=== PATIENT | male | born 1960 | race Caucasian/White ===

== ENCOUNTER 2024-10-04 12:52 | Outpatient (CLI) | payer MEDICARE, SELFPAY ==
--- OUTSIDE RECORDS SUMMARY | 2024-10-04 13:07 | XMS_ITS | Clinical Summary ---
Author Organization [facility] [address] Address [address] [place] [address] Care Team Providers Care Salesperson [employer] Name Role Phone Laura Torres MD Primary Care Provider [phone] Allergies Active Allergy Reactions Criticality Noted Date Comments Aspirin Nausea and Vomiting Low 03/21/2018 Bloody emesis Celecoxib Nausea and Vomiting Low 03/21/2018 Bloody emesis Iodinated Contrast Media Nausea and Vomiting Low Bloody emesis Ioversol Headache Low 07/04/2019 Bloody emesis Medications multivitamin (DAILY-CHINA) tablet Take 1 Tablet by mouth daily. Active tamsulosin (FLOMAX) 0.4 mg capsule Take 0.4 mg by mouth daily at bedtime. 03/30/20 20 Active CPAP / BIPAP suppliesIndication s:VARGHESE on CPAP CPAP Mask fit to comfort, Refit if needed, All associated CPAP Supplies as needed Length of need: 99 months DME Resp IV Care Small Wide N30 nasal mask 1 Each 12/09/19 21 Active acetaminophen-code ine (TYLENOL #3) 300-30 mg tablet TAKE 1 TABLET BY MOUTH EVERY 8 HOURS NEEDED FOR SEVERE PAIN (SCALE 8-10 IN SEVERITY) 12/14/19 22 Active overnight pulse oximetryIndication s:VARGHESE on CPAP Overnight pulse oximetry: One time overnight pulse oximetry test on room air and CPAP x 1 night IV resp care 1 Each 04/01/20 22 Active cpap medical deviceIndications: VARGHESE on CPAP New CPAP Setup Airsense 11 10cm with heated humidity, climateline tubing. Mask fit to comfort All associated CPAP supplies as needed, Please add to Airview. Compliance Download with [facility] in 2 weeks. ARELI 99 DME IV Resp Care 1 Each 04/01/20 Active loperamide (IMODIUM) 2 mg capsule Take 1 Capsule (2 mg) by mouth 4 times daily as needed for Diarrhea/Loose Stools. 120 Capsule 04/08/20 22 Active meclizine (ANTIVERT) 25 mg tablet TAKE 1 TABLET BY MOUTH 3 TIMES A DAY NEEDED FOR DIZZINESS 270 Tablet 3 09/07/19 24 Active rosuvastatin (CRESTOR) 20 mg tabletIndications: Mixed hyperlipidemia Take 1 Tablet (20 mg) by mouth daily. 100 Tablet 3 10/26/19 24 Active ezetimibe (Zetia) 10 mg tabletIndications: Mixed hyperlipidemia Take 1 Tablet (10 mg) by mouth daily. 100 Tablet 3 10/26/19 24 Active lisinopriL (PRINIVIL) 10 mg tabletIndications: Type 2 diabetes mellitus with diabetic peripheral angiopathy without gangrene, without long-term current use of insulin ([facility]),Diabetic polyneuropathy associated with type 2 diabetes mellitus ([facility]),HTN (hypertension), benign Take 1 Tablet (10 mg) by mouth daily. 100 Tablet 3 10/26/19 24 Active empagliflozin (Jardiance) 25 mg tabletIndications: Type 2 diabetes mellitus with complication, without long-term current use of insulin ([facility]) take 1 tablet by mouth every day in the morning 100 Tablet 3 02/01/20 24 Active pantoprazole (PROTONIX) 40 mg Tablet, Delayed Release (E.C.) take 2 tablets by mouth every day 200 Tablet 3 03/06/20 24 Active buPROPion HCL (WELLBUTRIN SR) 150 mg Sustained Release 12 hour tablet take 1 tablet by mouth twice a day 200 Tablet 3 03/06/20 24 Active gabapentin (NEURONTIN) 600 mg tabletIndications: Diabetic polyneuropathy associated with type 2 diabetes mellitus ([facility]/H[facility]) take 1 tablet by mouth three times a day 300 Tablet 3 03/11/20 24 Active semaglutide (Ozempic) 2 mg/dose (8 mg/3 mL) Pen InjectorIndication s:Type 2 diabetes mellitus with diabetic peripheral angiopathy without gangrene, without long-term current use of insulin ([facility]) Inject 2 mg by subcutaneous injection every 7 days. 9 mL 3 10/16/20 24 Active cyclobenzaprine (FLEXERIL) 5 mg TabletIndications: Acute pain of left knee,Muscle spasm of left lower extremity Take 1 Tablet (5 mg) by mouth 3 times daily as needed for Spasm. 20 Tablet 04/03/20 24 Active meloxicam (MOBIC) 15 mg tabletIndications: Acute pain of left knee TAKE 1 TABLET BY MOUTH EVERY DAY 100 Tablet 3 04/26/20 24 Active fluticasone propionate (FLONASE) 50 mcg/spray [place], Suspension nasal inhaler INSTILL 2 SPRAYS INTO THE NOSTRILS ONCE DAILY 48 mL 3 07/17/19 25 Active glipiZIDE (GLUCOTROL XL) 10 mg Extended Release 24 hour tabletIndications: Type 2 diabetes mellitus with complication, without long-term current use of insulin ([facility]) Take 1 Tablet (10 mg) by mouth 2 times daily. 200 Tablet 3 09/03/19 25 Active traMADol (ULTRAM) 50 mg tabletIndications: Whiplash injury to neck, initial encounter Take 1 Tablet (50 mg) by mouth every 8 hours as needed for Pain. 15 Tablet 09/28/19 25 Active Active Problems Patient Care Coordination No te Formatting of this note migh t be different from the original. DME: IV Resp Care for CPAP 6 yrs old Problem Noted Date Diagnosed Date Primary osteoarthritis of left knee 04/12/2024 DDD (degenerative disc disease), lumbar 02/12/20 Vertigo 02/12/2024 Frequent falls 02/12/2024 Frail elderly 02/12/2024 Severe obesity (BMI 35.0-39.9) with comorbidity 02/12/2024 Mixed hyperlipidemia 09/27/2022 Vitamin D insufficiency 08/26/2021 Type 2 diabetes mellitus wit h diabetic peripheral angiopathy without gangrene, without long-term current use of insulin 08/26/2021 Erectile dysfunction due to arterial insufficien cy 01/11/2021 Primary osteoarthritis of both knees 03/24/2020 Assessment & Plan (06/04/2020 3:11 PM WARE FINISHER): Suboptimal control. Assessment & Plan (05/28/2020 4:21 PM WARE FINISHER): Suboptimal control. Assessment & Plan (05/19/2020 1:31 PM WARE FINISHER): Suboptimal control. Assessment & Plan (04/07/2020 4:50 PM CDT): Suboptimal control. Recurrent major depressive disorder, in partial remission 04/25/2018 Lumbago of lumbar region with sciatica 8 HTN (hypertension), benign 03/21/2018 Gastroesophageal reflux disease without esophagi tis 03/21/2018 Diabetic polyneuropathy asso ciated with type 2 diabetes mellitus 03/21/2018 VARGHESE on CPAP 03/21/2018 Spinal stenosis of lumbar region 10/26/2016 Resolved Problems Problem Noted Date Diagnosed Date Resolved Date Orthostatic hypotension 10/26/202109/17 JOAQUIM (acute kidney injury) 10/25/2021 Syncope 10/25/2021 09/27/2022 Chest pain 10/25/2021 09/27/2022 Adjustment disorder with depressed mood 08/26/2021 08/26/2021 Hydrocele 01/11/2021 04/07/2022 Lateral femoral cutaneous entrapment syndrome 08/06/1909/27/2022 Right inguinal hernia 12/18/20182023 Morbid obesity with body mas s index of 40.0-49.9 04/17/2018 08/26/2021 Positional lightheadedness 0 09/27/2022 Encounters Date Type Department Care Team Description 09/27/2024 Orders Only [facility] [address] [place] [address] Provider, Abstract Whiplash injury to neck, initial encounter (Primary Dx) 09/26/2024 12:57 PM CDT - 09/26/2024 11:59 PM CDT Hospital Encounter [facility] [address] [facility] [place] [address] Laura Torres MD Discharge Disposition: Home or Self Care 09/26/2024 Results Follow-Up [facility] [address] [place] [address] Laura Torres MD MRI CERVICAL WO CONTRAST 09/02/2024 Orders Only [facility] [address] [place] [address] Laura Torres MD Type 2 diabetes mellitus with complication, without long-term current use of insulin (CMS/HCC) 08/27/2024 External Device Data [facility] ABSTRACTION Provider, Abstract 08/27/2024 External Device Data [facility] ABSTRACTION Provider, Abstract 08/16/2024 Prep for Surgery [facility] [address] [phone] Dariana Sy PCA Meralgia paresthetica, unspecified laterality (Primary Dx) 08/14/2024 12:20 PM WARE FINISHER Office Visit [facility] [address] [phone] Padmini Seay PA Meralgia paresthetica, unspecified laterality (Primary Dx) 08/13/2024 Abstract [facility] [address] [place] [address] Laura Torres MD 08/12/2024 Abstract [facility] [address] [place] [address] Laura Torres MD 08/07/2024 3:00 PM WARE FINISHER Office Visit [facility] [address] [place] [address] Laura Torres MD Concussion without loss of consciousness, initial encounter (Primary Dx); Type 2 diabetes mellitus with diabetic peripheral angiopathy without gangrene, without long-term current use of insulin (CMS/HCC); Severe obesity (BMI 35.0-39.9) with comorbidity (CMS/HCC); HTN (hypertension), benign; Diabetic polyneuropathy associated with type 2 diabetes mellitus (CMS/HCC); Mixed hyperlipidemia; Vitamin D insufficiency; Prostate cancer screening; Vertigo; Whiplash injury to neck, initial encounter 08/05/2024 Orders Only [facility] [address] [place] [address] Laura Torres MD 07/31/2024 Telephone [facility] [place] [address] [place] [address] Laura Torres MD Clinical Consult Before Scheduling 07/17/2024 Refill [facility] [place] [address] [place] [phone] Laura Torres MD 07/15/2024 12:17 PM WARE FINISHER - 07/15/2024 11:59 PM WARE FINISHER Hospital Encounter [facility] [address] [place] [address] Claudia Ramirez, JUDO INSTRUCTOR Janak Grant MD Discharge Disposition: Home or Self Care 07/15/2024 11:08 AM WARE FINISHER - 07/15/2024 11:59 PM WARE FINISHER Hospital Encounter [facility] [address] [place] [address] Janak Grant MD Discharge Disposition: Home or Self Care 07/11/2024 External Device Data [place] ABSTRACTION Provider, Abstract 07/10/2024 External Device Data [place] ABSTRACTION Provider, Abstract 07/09/2024 External Device Data [place] ABSTRACTION Provider, Abstract from Last 3 Months Immunizations Immunization Administration Dates Next Due (ADACEL/BOOSTRIX)(10 YR UP) TDAP VACCINE, 0.5ML, IM 12/23/2020 (PFIZER DRU)(12 YR UP PRIMA RY SERIES) COVID-19 VACCINE - EMERGENCY USE AUTHORIZATION, MRNA, DRU(PF) 30 MCG/0.3 ML IM SUSP 08/13/2021 (PFIZER)(12 YR UP) COVID-19 VACCINE - EMERGENCY USE AUTHORIZATION, MRNA, [id number](PF) 30 MCG/0.3 ML IM SUSP 01/27/2021,01/06/2021 INFLUENZA VACCINE QUADRIVALENT 6 MOS UP IM 05/27 Family History Medical History Relation Name Comments Cancer Brother 1 Francisco Hypertension Brother 1 Francisco Diabetes Brother 3 Georges Antonieta Hypertension Brother 3 Georges Antonieta Cancer Father Ryan Diabetes Paternal Grandmother Eva Fung Dece ed Relation Name Status Comments Brother 1 Francisco Brother 2 Alive Brother 3 Georges Antonieta Daughter 1 Alive Daughter 2 Alive Father Ryan Mother Paternal Grandmother Eva Fung Social History Tobacco Use Types Packs/Day Years Used Date Smoking Tobacco: Never Passive Smoke Exposure: Never Smokeless Tobacco: Never Tobacco Cessation:Counseling Given: No Alcohol Use Standard Drinks/Week Comments Never 0 (1 standard drink = 0.6 oz pur e alcohol) wine cooler, beer; 1-4 times Financial Resource Strain Answer Date R ecorded How hard is it for you to pa y for the very basics like food, housing, medical care, and heating? Not hard at all 09/27/2022 Food Insecurity Answer Date Recorded In the past 12 months, have you worried that your food would run out before you had money to buy more? Never true 09/27/2022 In the past 12 months, did y ou run out of food and didn't have money to buy more? Never true 09/27/2022 Transportation Needs Answer Date Record ed In the past 12 months, has l ack of transportation kept you from medical appointments or from getting medications? No 09/27/2022 Lack of Transportation (Non-Medical) Not on file 09/27/2022 Sex and Gender Information Value Date Recorded Sex Assigned at Not on file Legal Sex Male 11:11 PM CDT Gender Identity Not on file Sexual Orientation Not on file Occupation Industry Job Start Date Job End Date Disability Not on file Not on file Not on file Last Filed Vital Signs Vital Sign Reading Time Taken Comments Blood Pressure 137/87 08/07/2024 1:52 PM WARE FINISHER Pulse 80 08/07/2024 1:52 PM WARE FINISHER Temperature 36.6 C (97.8 F) 08/07/2024 1:52 PM WARE FINISHER Respiratory Rate 22 07/15/2024 12:47 PM WARE FINISHER Oxygen Saturation 96% 08/07/2024 1:52 PM WARE FINISHER Inhaled Oxygen Concentration - - Weight 124.3 kg (274 lb) 09/24/2024 11:19 AM CDT Height 180.3 cm (5' 11 ) 08/07/2024 1:52 PM WARE FINISHER Body Mass Index 38.22 08/07/2024 1:52 PM WARE FINISHER Plan of Treatment Upcoming Encounters Date Type Department Care Team (Late st Contact Info) Description 10/15/2024 1:30 PM CDT Appointment [facility] [address] [place] [address] [place] [address] [place] [address] 10/24/2024 9:15 AM CDT Office Visit [facility] [address] [facility] [address] [place] [address] Jessie Guillory, LOGISTICS SOLUTION MANAGER-MINE SAFETY DIRECTOR [address] [place] [address] Health Maintenance Due Date Last Done Comments FIT/FOBT Q 1 YEAR (AUTO ORDER) 11/11/1979 FIT-DNA Q 3 years 2006 FIT/FOBT Q 1 year 2006 Flex Sig/CT Colonography Q 5 years 2006 ZOSTER VACCINE (1 of 2) 11/11/2011 RSV VACCINE (60+ or ) (1 - Risk 60-74 years 1-dose series) 2021 FIT/ DNA Q 3 YEARS (AUTO ORDER) 05/01/2022 9 COVID-19 Vaccine ( - 2023-2 5 season) 2024 08/13/2021, 01/27/2021, 01/06/2021 FLEX SIG/CT COLONOGRAPHY Q 5 YEARS (AUTO ORDER) 05/01/2024 05/01/2019, 05/01/2019 KHE eGFR (Auto Order) 06/19/2024 07/20/2023 , 09/30/2022, 10/26/2021, Additional history exists KHE uACR (Auto Order) 06/19/2024 07/20/2023 , 09/30/2022, 08/26/2021, Additional history exists Preventative Visit- Commercial 06/19/2024 0 07/19/2023, 11/01/2021, 04/17/2018 DIABETES MICROALBUMIN ANNUAL SCREEN 07/20/2024 07/20/2023, 09/30/2022, 08/26/2021, Additional history exists LDL CHOLESTEROL ANNUAL 07/20/2024 , 09/30/2022, 10/26/2021, Additional history exists DIABETES ANNUAL FOOT EXAM 10/25/20242023, 09/27/2022, 08/26/2021, Additional history exists DIABETES HBA1C Q 6 MONTHS 11/20/20242023, 02/12/2024, 10/26/2023, Additional history exists DIABETES: A1C (Auto Order) 05/22/202505/22, 02/12/2024, 10/26/2023, Additional history exists DIABETES ANNUAL RETINAL EXAM 09/27/202504/2025, 06/15/2022, 01/21/2019 COLORECTAL CANCER SCREENING (AUTO ORDER) 08/22/2029 08/23/2019, 08/23/2019, 08/23/2019 COLORECTAL SCREENING 08/22/2029 08/23/2019, 08/23/2019, 08/23/2019 Colorectal Cancer Screening (AUTO ORDER) 08/22/2029 Colorectal Cancer Screening 08/22/2029 DTAP/TDAP/TD VACCINES (2 - T d or Tdap) 12/23/2030 12/23/2020 INFLUENZA VACCINE Completed 05/22/2024, , 04/14/2023, Additional history exists Medical Devices Implanted Type Area Curriculum Assistant Principal Device Identifier Shelf Expiration Date Model / Serial / Lot Mesh Lap Film Progrip Slf Lp [id number] - Sn/A Implanted:Qty: 1 on 02/08/2019 by Cordell Owens DO at [facility] Mesh Right: Abdomen [employer] - COVIDIEN 09/16/2021 [id number] / N/A / [id number] Description:REQ [id number] Procedures Procedure Name Priority Date/Time Associated Diagnosis Comments HM DIABETES EYE EXAM Routine 09/27/2024 2:59 PM CDT MRI CERVICAL WO CONTRAST Routine 09/26/2024 3:40 PM CDT Whiplash injury to neck, initial encounter US GUIDE NEEDLE PLACEMENT Routine 07/15/2024 12:45 PM WARE FINISHER POC HEMOGLOBIN A1C Routine 05/22/2024 11 :00 AM WARE FINISHER Type 2 diabetes mellitus with diabetic peripheral angiopathy without gangrene, without long-term current use of insulin ([facility]) MICROALBUMIN/CREATINI NE RATIO, RANDOM UR Routine 07/20/2023 8:29 AM WARE FINISHER Type 2 diabetes mellitus with complication, without long-term current use of insulin ([facility]) LIPID PANEL Routine 07/20/2023 8:28 AM WARE FINISHER Mixed hyperlipidemia COMPREHENSIVE METABOLIC PANEL Routine 07/20/2023 8:26 AM WARE FINISHER Type 2 diabetes mellitus with complication, without long-term current use of insulin ([facility]) COLONOSCOPY REPORT 08/23/2019 3: 34 PM WARE FINISHER ENDOSCOPY, COLON, SCREENING Routine 08/23/2019 from Last 3 Months or Most Recently Relevant to Health Maintenance Results * DIABETES EYE EXAM (09/27/2024 2:59 PM CDT) us Abstract Provider HEALTH MAINTENANCE Edited Resu lt - Final [facility]# [id number] [facility] [place] [address] * MRI CERVICAL WO CONTRAST (09/26/2024 3:40 PM CDT) Anatomical Region Laterality Modality Spine Magnetic Resonan ce 09/26/2024 3:40 PM CDT Impressions 09/26/2024 4:18 PM CDT IMPRESSION: 1. Cervical degenerative disc and joint disease as described above, most pronounced at C5-6 and C6-7. DICTATION LOCATION: Location [facility] Narrative 09/26/2024 4:18 PM CDT EXAMINATION: MRI CERVICAL WO CONTRAST DATE: 09/26/2024 3:40 PM HISTORY: Myelopathy, acute, cervical spine; Whiplash injury to neck, initial encounter TECHNIQUE: MRI of the cervical spine was performed without contrast according to standard protocol. COMPARISON: No prior study is available for comparison at the time of this dictation. FINDINGS: The alignment is normal. Vertebral bodies are normal in height without evidence of compression fracture. There is left C2-3 facet marrow edema. The craniocervical junction and visualized portions of the posterior fossa appear normal. The spinal cord appears normal. The intervertebral discs are normal in height. There are mastoid effusions. Normal flow voids are identified in the vertebral arteries. C2-3: There is mild disc bulge. There is mild spinal canal stenosis. There is severe left facet osteoarthritis. There is no uncovertebral joint osteoarthritis. There is no neural foraminal stenosis. C3-4: There is diffuse disc bulge. There is mild spinal canal stenosis. There is mild right facet osteoarthritis. There is mild to moderate uncovertebral joint osteoarthritis. There is mild to moderate neural foraminal stenosis. C4-5: There is mild disc bulge. There is mild spinal canal stenosis. There is severe left facet osteoarthritis. There is mild right uncovertebral joint osteoarthritis. There is mild right neural foraminal stenosis. C5-6: There is diffuse disc bulge. There is ligamentum flavum infolding. There is moderate spinal canal stenosis. There is mild left facet osteoarthritis. There is moderate right and mild left uncovertebral joint osteoarthritis. There is moderate right and mild left neural foraminal stenosis. C6-7: There is diffuse disc bulge. There is ligamentum flavum infolding. There is moderate spinal canal stenosis. There is mild facet osteoarthritis. There is mild right and moderate left uncovertebral joint osteoarthritis. There is mild right and moderate left neural foraminal stenosis. C7-T1: There is mild disc bulge. There is no spinal canal stenosis. There is mild facet osteoarthritis. There is moderate left uncovertebral joint osteoarthritis. There is moderate left neural foraminal stenosis. Procedure Note Christopher Willett MD - 09/26/2024 EXAMINATION: MRI CERVICAL WO CONTRAST DATE: 09/26/2024 3:40 PM HISTORY: Myelopathy, acute, cervical spine; Whiplash injury to neck, initial encounter TECHNIQUE: MRI of the cervical spine was performed without contrast according to standard protocol. COMPARISON: No prior study is available for comparison at the time of this dictation. FINDINGS: The alignment is normal. Vertebral bodies are normal in height without evidence of compression fracture. There is left C2-3 facet marrow edema. The craniocervical junction and visualized portions of the posterior fossa appear normal. The spinal cord appears normal. The intervertebral discs are normal in height. There are mastoid effusions. Normal flow voids are identified in the vertebral arteries. C2-3: There is mild disc bulge. There is mild spinal canal stenosis. There is severe left facet osteoarthritis. There is no uncovertebral joint osteoarthritis. There is no neural foraminal stenosis. C3-4: There is diffuse disc bulge. There is mild spinal canal stenosis. There is mild right facet osteoarthritis. There is mild to moderate uncovertebral joint osteoarthritis. There is mild to moderate neural foraminal stenosis. C4-5: There is mild disc bulge. There is mild spinal canal stenosis. There is severe left facet osteoarthritis. There is mild right uncovertebral joint osteoarthritis. There is mild right neural foraminal stenosis. C5-6: There is diffuse disc bulge. There is ligamentum flavum infolding. There is moderate spinal canal stenosis. There is mild left facet osteoarthritis. There is moderate right and mild left uncovertebral joint osteoarthritis. There is moderate right and mild left neural foraminal stenosis. C6-7: There is diffuse disc bulge. There is ligamentum flavum infolding. There is moderate spinal canal stenosis. There is mild facet osteoarthritis. There is mild right and moderate left uncovertebral joint osteoarthritis. There is mild right and moderate left neural foraminal stenosis. C7-T1: There is mild disc bulge. There is no spinal canal stenosis. There is mild facet osteoarthritis. There is moderate left uncovertebral joint osteoarthritis. There is moderate left neural foraminal stenosis. IMPRESSION: 1. Cervical degenerative disc and joint disease as described above, most pronounced at C5-6 and C6-7. DICTATION LOCATION: Location - [facility] us Laura Torres MD MR ORDERABLES Final Result * US GUIDE NEEDLE PLACEMENT (07/15/2024 12:45 PM WARE FINISHER) Narrative [facility] - 07/15/2024 12:45 PM WARE FINISHER Order information only. Exam was auto-finalized. us Claudia Ramirez NP US ORDERABLES Final Resul t [facility] CLIA# [id number] [place] [address] * (ABNORMAL) POC HEMOGLOBIN A1C (05/22/2024 11:00 AM WARE FINISHER) HGB A1C POC 7.1(A) 4.0 - 6.0 % [facility] KIT LOT NUMBER POC [id number] [facility] KIT EXP DATE POC 07/19/2025 [facility] Blood, whole 05/22/2024 11:0 0 AM WARE FINISHER Laura Torres MD POINT OF CARE TESTING Final Resu lt Performing Organization Address City/[facility]/ZIP Co de Phone Number [facility] CLIA# [id number] [facility] [place] [address] * MICROALBUMIN/CREATININE RATIO, RANDOM UR (07/20/2023 8:29 AM WARE FINISHER) Creatinine, Urine 45 20 - 320 mg/dL [facility] MICROALBUMIN, URINE 0.2 See Note: mg/dL [facility] Comment: Reference Range: Reference Range Not established MICROALBUMIN/CREAT RATIO, UR 4 <30 mcg/mg creat [facility] Comment: The ADA defines abnormalities in albumin excretion as follows: Albuminuria Category Result (mcg/mg creatinine) Normal to Mildly increased <30 Moderately increased 30-299 Severely increased > OR = 300 The ADA recommends that at least two of three specimens collected within a 3-6 month period be abnormal before considering a patient to be within a diagnostic category. FASTING:NO FASTING: NO Test Performed at: [email or web address] [id number] [place] [address] Augusto Kingsley MD Urine URINE SPECIMEN OBTAINED BY CLEAN CATCH PROCEDURE / Unknown 07/20/2023 8:29 AM WARE FINISHER 07/20/2023 8:30 AM WARE FINISHER us Laura Lopez JUDO INSTRUCTOR URINE ORDERABLES Final Resu lt Performing Organization Address City/[facility]/ZIP Co de Phone Number [facility] [phone] [email or web address] [id number] [place] [address] * (ABNORMAL) LIPID PANEL (07/20/2023 8:28 AM WARE FINISHER) CHOLESTEROL 144 <200 mg/dL [facility] HDL 25(L) > OR = 40 mg/dL [facility] [facility] TRIGLYCERIDE 264(H) <150 mg/dL Concurrent ThinkingJulieta Zavala Comment: If a non-fasting specimen was collected, consider repeat triglyceride testing on a fasting specimen if clinically indicated. Rylie et al. J. of Clin. Lipidol. 2015;9:129-169. LDL CALCULATED 84 mg/dL (calc) VisibizVeda Zavala Comment: Reference range: <100 Desirable range <100 mg/dL for primary prevention; <70 mg/dL for patients with CHD or diabetic patients with > or = 2 CHD risk factors. LDL-C is now calculated using the Omer calculation, which is a validated novel method providing better accuracy than the Friedewald equation in the estimation of LDL-C. Dennis SILVA et al. SENIA. 2013;310(19): 3116-5668 (http://education.Rakuten MediaForge/faq/QFO274) CHOL/HDL RATIO 5.8(H) <5.0 (calc) Concurrent ThinkingJulieta Zavala TOTAL NON-HDL CHOL(LDL+VLDL) 119 <130 mg/dL (calc) Concurrent ThinkingJulieta Zavala Comment: For patients with diabetes plus 1 major ASCVD risk factor, treating to a non-HDL-C goal of <100 mg/dL (LDL-C of <70 mg/dL) is considered a therapeutic option. FASTING:NO FASTING: NO Test Performed at: [place] [address] [address] [facility] Blood 07/20/2023 8:28 AM WARE FINISHER 07/20/2023 8:28 AM WARE FINISHER Laura Lopez JUDO INSTRUCTOR CHEMISTRY ORDERABLES Final Result [facility] [phone] [place] [address] [phone] * (ABNORMAL) COMPREHENSIVE METABOLIC PANEL (07/20/2023 8:26 AM WARE FINISHER) GLUCOSE 145(H) 65 - 139 mg/dL Alina QubulusJulieta Zavala Comment: Non-fasting reference interval BUN 15 7 - 25 mg/dL Alina DelvalleJulieta Zavala CREATININE 1.25 0.70 - 1.35 mg/dL Alina DelvalleJulieta Zavala GFR 66 > OR = 60 mL/min/1. 73m2 Alina DelvalleFliggoJulieta Zavala BUN/CREAT RATIO SEE NOTE: 6 - 22 (calc) Alina DelvalleFliggoJulieta Zavala Comment: Not Reported: BUN and Creatinine are within reference range. SODIUM 136 135 - 146 mmol/L Alina DelvalleJulieta Zavala POTASSIUM 4.1 3.5 - 5.3 mmol/L invi MookJulieta Zavala CHLORIDE 101 98 - 110 mmol/L invi MookFliggoJulieta Zavala CO2 26 20 - 32 mmol/L invi MookJulieta Zavala CALCIUM 9.9 8.6 - 10.3 mg/dL Alina DelvalleJulieta Zavala TOTAL PROTEIN 7.2 6.1 - 8.1 g/dL invi Mook jennifer Zavala ALBUMIN 4.6 3.6 - 5.1 g/dL [facility] Qubulus jennifer Zavala GLOBULIN 2.6 1.9 - 3.7 g/dL (calc) Alina QualisteoJulieta Zavala ALBUMIN/GLOBULIN RATIO 1.8 1.0 - 2.5 (calc) Concurrent ThinkingJulieta Zavala BILIRUBIN TOTAL 0.7 0.2 - 1.2 mg/dL [facility] MookJulieta Zavala ALKALINE PHOSPHATASE 68 35 - 144 U/L invi MookJulieta Zavala AST 20 10 - 35 U/L Concurrent ThinkingJulieta Z[facility]ala ALT 22 9 - 46 U/L VisibizJulieta Zavala Comment: FASTING:NO FASTING: NO Test Performed at: [place] [address] [id number] Esther[facility] Blood 07/20/2023 8:26 AM WARE FINISHER 07/20/2023 8:26 AM WARE FINISHER Laura Lopez NP CHEMISTRY ORDERABLES Final Result [facility] [phone] [facility] [place] [address] [address] * COLONOSCOPY REPORT (08/23/2019 3:34 PM WARE FINISHER) Narrative Procedure Note Piter Hanley MD - 08/23/2019 3:34 PM CST [facility] Endoscopy Patient Name: Bertin Fung Procedure Date: 08/23/2019 Date of : 1960 Admit Type: Outpatient Attending MD: Piter Hanley MD Procedure: Colonoscopy Indications: Screening for colorectal malignant neoplasm, Incidental diarrhea noted Providers: Piter Hanley MD Referring MD: Laura Torres MD Medicines: Monitored Anesthesia Care Complications: No immediate complications. Procedure: Informed consent was obtained for the procedure, including moderate sedation after risks were discussed. Based on the pre-procedure assessment, including review of the patient's medical history, medications, allergies, and review of systems, the patient was deemed to be an appropriate candidate for sedation. A timeout was performed. Continuous ECG monitoring, pulse oximetry, blood pressure monitoring, and direct observation were performed. The Colonoscope was introduced through the anus and advanced to the cecum, identified by appendiceal orifice and ileocecal valve. The colonoscopy was performed without difficulty. The patient tolerated the procedure well. The quality of the bowel preparation was adequate to identify polyps 6 mm and larger in size. Findings: The perianal and digital rectal examinations were normal. The colon (entire examined portion) appeared normal. Biopsies were taken with a cold forceps for histology. External and internal hemorrhoids were found during retroflexion. The hemorrhoids were medium-sized and Grade I (internal hemorrhoids that do not prolapse). The exam was otherwise without abnormality on direct and retroflexion views. Impression: - The entire examined colon is normal. Biopsied. - External and internal hemorrhoids. - The examination was otherwise normal on direct and retroflexion views. Recommendation: - Discharge patient to home (with escort). - Await pathology results. - Repeat colonoscopy in 10 years for screening purposes. - If you have new family history of colon cancer or advanced polyp (i.e. Larger than 1 cm or has villous features) in a first degree relative before they are 60 years old, or two first degree relatives at any age; then you will need a repeat colonoscopy for screening in 5 years. Procedure Code(s): --- Professional --- 02020, Colonoscopy, flexible; with biopsy, single or multiple CPT copyright 2016 [employer]. All rights reserved. The codes documented in this report are preliminary and upon dynamics ax solution architect review may be revised to meet current compliance requirements. Piter Hanley MD 08/23/2019 3:33:41 PM This report has been signed electronically. Number of Addenda: [phone] [place] [address] [place] Piter Hanley MD GI PROCEDURE ORDERABLES Final Result * ENDOSCOPY, COLON, SCREENING (08/23/2019) us Abstract Provider GI PROCEDURE ORDERABLES Final Result from Last 3 Months or Most Recently Relevant to Health Maintenance [facility] [address] [place] [id number] RX AETNA Medicare Part D RX GROSS PLANS (INTERNAL) [facility] AETNA O [facility] [place] [address] [id number] [facility] MCR [facility] MCR Advance Directives For more information, please contact: [phone] * Full Code (Latest Code Status on File) Date Activated Date Inactivated Comments 10/25/2021 9:48 PM 10/26/2021 9:01 PM * Full Code Date Activated Date Inactivated Comments 02/08/2019 8:24 AM 02/08/2019 4:11 PM * Full Code Date Activated Date Inactivated Comments 02/08/2019 7:47 AM 02/08/2019 8:24 AM Care Teams Salesperson [employer] Relationship Specialty Start Date End Date Laura Torres MD [address] [place] [id number] PCP - General Internal Medicine 06/21/18
--- OUTSIDE RECORDS SUMMARY | 2024-10-04 13:07 | XMS_ITS | CONTINUITY OF CARE DOCUMENT ---
Author Name dennis collins Address Unknown Organization [facility] Address [address] [address] [facility] [address] [place] [address] Phone [phone] Care Team Providers Care Adult Protective Caseworker Name Role Phone Ramesh Telles MD Unavailable [phone] CE SUNSHINE MD Unavailable INSURANCE PROVIDERS Payer name Policy type / Coverage type [place] red alliance party ID [facility] [id number]
--- OUTSIDE RECORDS SUMMARY | 2024-10-04 13:07 | XMS_ITS | Continuity of Care Document ---
Author Organization [facility] Address [address] [facility] [address] [place] [address] Phone Care Team Providers Care Obiee Consultant Name Role Phone Ren Han MD Unavailable Unavailable Allergies, Adverse Reactions, Alerts Substance Reaction Status Criticality ioversol Active No Information celecoxib Active No Information aspirin Active No Information Medications Medication Instructions Dosage Effective Dates (start - stop) Status Comments ibuprofen 800 mg tablet take 1 tablet by oral route 3 times every day with food 800 MG - Active Percocet 5 mg-325 mg tablet take 1 tablet by oral route every 4 - 6 hours as needed for pain - Active polymyxin B sulfate 10,000 unit-trimethoprim 1 mg/mL eye drops instill 1 drop by ophthalmic route every 6 hours into affected eye(s) 1.00 drop - Active pantoprazole 40 mg tablet,delayed release take 1 tablet by oral route 2 times every day 40 MG - Active bupropion HCl XL 150 mg 24 hr tablet, extended release take 1 tablet by oral route every day 150 MG - Active mupirocin 2 % topical ointment apply by topical route 2 times every day a small amount to the affected area Not Available - Active Trulicity 0.75 mg/0.5 mL subcutaneous pen injector inject (0.75MG) by subcutaneous route every week 0.75 MG - Active sildenafil 100 mg tablet take 1 tablet by oral route every day as needed approximately 1 hour before sexual activity 100 MG - Active tamsulosin 0.4 mg capsule take 1 capsule by oral route every day 1/2 hour following the same meal each day 0.4 MG - Active diclofenac 3 % topical gel apply by topical route 2 times every day to lesion areas 0.00 - Active baclofen 10 mg tablet take 1 tablet by oral route 3 times every day 10 MG - Active multivitamin tablet - Active lisinopril 10 mg tablet take 1 tablet by oral route every day 10 MG - Active glipizide 10 mg tablet take 1 tablet by oral route every day before a meal 10 MG - Active metformin 500 mg tablet take 1 tablet by oral route 2 times every day with morning and evening meals 500 MG - Active gabapentin 600 mg tablet take 1 tablet by oral route 3 times every day 600 MG - Active Pepcid 20 mg tablet take 1 tablet by oral route 2 times every day 20 MG - Active atorvastatin 10 mg tablet take 1 tablet by oral route every day 10 MG - Active meclizine 12.5 mg tablet take 2 tablet by oral route 3 times every day as needed 25 MG - Active Farxiga 5 mg tablet take 1 tablet by oral route every day in the morning 5 MG - No Longer Active Procedures Procedure Date RADEX KNE 3 VIEWS OFFICE/OUTPATIENT VISIT EST RADEX WRST COMPL MINIMUM 3 VIEWS 2019 OFFICE/OUTPATIENT VISIT EST MRI UXTR OTH/THN JT C-MATRL OFFICE/OUTPATIENT VISIT EST RADEX HAND MINIMUM 3 VIEWS RADEX WRST COMPL MINIMUM 3 VIEWS 2019 OFFICE/OUTPATIENT VISIT NEW Advance Directives Directive Yes / No Effective Date File Name Other Directive No N/A N/A WARNING:The information contained in this section is historical and is provided for information only and does not constitute a legal document or any assurance that the information is still accurate. Please verify the information with the yates of the legal document before using it for clinical purposes. Encounters Encounter Description Practice Location Reason(s) For Visit Diagnoses Date Provider Providers Copied on Encounter OFFICE/OUTPA TIENT VISIT EST [facility], [address], [place], [address], [place] tel:[phone] [facility] Left knee pain, unspecified chronicityBody mass index [BMI] 39.0-39.9, adultPrimary osteoarthritis of left knee 2 Emely Mcclure. [address], [place], [place], [address]. tel:[phone] Referring Provider: Laura Dumont, [address], [place], [address]. tel:[phone] [facility], [address] [facility] [address], [place], [address], [place] tel:[phone] [facility] No Information 0 Lali Lynn. [address], [place], [place], [id number]. tel:[phone] OFFICE/OUTPA TIENT VISIT EST [facility], [address], [place], [address], [place] tel:[phone] [facility] Unspecified fracture of lower end of left ulna, subsequent encounter for closed fracture with routine healingPain in left handSprain of left wrist, subsequent encounter 0 Toño Millard. [address], [place], [place], [id number]. tel:[phone] [facility], [address], [place], [address], [place] tel:[phone] [facility] Pain in left hand 0 No Information Referring Provider: Shane Escalera, [address], [place], [address] . tel:[phone] OFFICE/OUTPA TIENT VISIT EST [facility], [address] [facility] [address], [place], [address], [place] tel:[phone] [facility] Pain in left hand 0 Toño Millard. [address], [place], [place], [address]. tel:[phone] OFFICE/OUTPA TIENT VISIT NEW [facility], [address], [place], [address], [place] tel:[phone] [facility] Body mass index (BMI) 40.0-44.9, adultClosed fracture of distal end of left ulna, unspecified fracture morphology, initial encounterSprai n of left wrist, initial encounter 0 Toño Millard. [address], [place], [place], [id number]. tel:[phone] Referring Provider: [address], [place], [address]. tel:[phone] Family History Family Member Type Diagnosis Age At Onset Brother Problem Cancer, pancreas Father Problem (finding) Cancer, unknown Payers Payer name Insurance type Covered green party ID Tiffanie raya(s) Robert Medicare HMO OT [id number] Social History Type Description Quantity Date Captured Comments Alcohol Use Details beer Caffeine Use Details Unknown Tobacco Use Status Current non-smoker Smoking Status Never smoker Non-Smoking Tobacco Use Details : No Details Available : No Details Available Sex Male Vital Signs Date / Time: Height Weight BMI Pulse Rate Blood Pressure Temperature Respiratory Rate Body Surface Area Head Circumference Head Circ. Percentile Wt./Deny. Percentile BMI percentile Pulse Ox Inhaled Ox 2:02 PM 71.00 in 129.274 kg (285.00 lbs) 39.7 5 kg/m eter (2) Chief Complaint And Reason For Visit No Information Reason For Referral Reason For Referral No Information Plan Of Treatment Date Type Action Status Goal Dietary management education , guidance, and counseling completed Referral Ordered: RADEX KNE 3 VIEWS LT ordered Referral Ordered: MRI UXTR OTH/THN JT C-MATRL LT hand Appointment date/timeframe: 07/17/2019 ordered Referral Ordered: RADEX HAND MINIMUM 3 VIEWS LT ordered Referral Ordered: RADEX WRST COMPL MINIMUM 3 VIEWS LT ordered History Of Present Illness Encounter Date Complaint History Of Prese nt Illness No Information Functional Status Date Functional Assessmen t No Information Instructions Date Instruction Additional Infor mation Dietary management e ducation, guidance, and counseling Related to Body mass index [BMI] 39.0-39.9, adult Report increased cally n, swelling, numbness or discoloration. Related to Unspecified fracture of lower end of left ulna, subsequent encounter for closed fracture with routine healing Use as directed Related to Unspe cified fracture of lower end of left ulna, subsequent encounter for closed fracture with routine healing Report increased cally n, swelling, numbness or discoloration. Related to Unspecified fracture of lower end of left ulna, subsequent encounter for closed fracture with routine healing Take medication as directed. Rel ated to Unspecified fracture of lower end of left ulna, subsequent encounter for closed fracture with routine healing Use as directed Related to Unspe cified fracture of lower end of left ulna, subsequent encounter for closed fracture with routine healing Rest, ice and elevate. Related t o Pain in left hand Discussed treatment options Rela randolph to Pain in left hand Call for increase in pain Relate d to Pain in left hand Report increased cally n, swelling, numbness or discoloration. 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
[2024-10-04 13:39] LABS: Anion Gap 12 mmol/L (4-12); Blood Urea Nitrogen 12 mg/dL (9-20); Calcium 9.5 mg/dL (8.4-10.2); Carbon Dioxide 23 mmol/L (22-30); Chloride 104 mmol/L (98-107); Estimated Glomerular Filt Rate > 60; Glucose 108 mg/dL (65-110); Potassium 4.5 mmol/L (3.4-5.0); Sodium 139 mmol/L (137-145)
== END 2024-10-04 12:53 | disposition home or self-care (01) ==
PROVIDERS: Anesthesiology; Visit Provider Plastic Surgery
DX: E11.9 Type 2 diabetes mellitus without complications (principal)
CPT/HCPCS: 36415; 80048

== ENCOUNTER 2024-10-09 00:53 | Day surgery (SDC) | payer MEDICARE, SELFPAY ==
[2024-10-03 10:00] VITALS: BMI 37.6
--- NOTE | 2024-10-03 10:51 | SUR.PREOP ---
Addendum entered by June Barber RN 10/03/24 10:58: Nothing to eat or drink 8 hours prior to procedure. Nothing after 04:30 AM day of surgery Original Note: Report to the Outpatient Waiting Room, entrance under the green pavilion located off [facility], at time 1030 on date 10/09/24. Planned Procedure Time:1230.? Time changes happen often and if your time is changed the preop area will call you the afternoon before. - You and your visitor will be asked to self-screen and do not enter if you have any COVID symptoms. Please call surgeon if you need to reschedule. - A mask is optional within the hospital at this time. Patients may have clear liquids (water, carbonated beverages, clear teas, apple juice) until 3 hours prior to surgery with a maximum of 20 ounces. - No food from midnight until time of surgery and no smoking, or chewing tobacco (or any form of nicotine). No chewing gum, candy or mints. - Infants may have breast milk until 4 hours before surgery, formula 6 hours prior to surgery. - Children will be allowed to drink immediately following surgery.? If applicable, please bring a bottle or sippy cup to assist with drinking. Juice, water, soda, and popsicles are readily available.? For infants on formula, please bring formula the day of surgery.? Pacifiers are allowed. Take only the following medications with a SIP of water on the morning of surgery - bupropion, gabapentin DO NOT STOP ANY OF YOUR OTHER PRESCRIPTION MEDICATIONS PRIOR TO SURGERY EXCEPT THE FOLLOWING Hold all vitamins and supplements for 3 days per anesthesiologist. Medications to discontinue per physician - ezetimibe, glipizide, jardiance, lisinopril - day of surgery Date to take last dose Please no make-up, nail mohawk, hairspray, perfume, deodorant, or body powder the day of surgery.? No jewelry (including any body piercings) or valuables the day of surgery, leave them at home.? Please take a shower or bath the night before, or the morning of, surgery with an antibacterial soap.? Wear comfortable, loose fitting clothing.? Children are encouraged to wear pajamas. - Jewelry must be removed prior to entering the operating room.? Rings and piercings that are not removed may be cut off. - The hospital will not accept responsibility for valuables.? - Please leave all valuables, including medications, at home the day of surgery. If you are going home after surgery, a licensed lokie driver must drive you home.? - NO public transportation without another adult if you receive anesthesia. - We recommend that an adult stay with you for 24 hours following discharge. - We also recommend that you do not drive, make important decision, drink alcoholic beverages, or take any drugs that were not prescribed by your health care provider for at least 24 hours after your discharge time. For Pediatric surgeries, we recommend two adults accompany the child home. Follow any additional instructions given to you from your surgeon. Telephone instructions given to _patient_and asked if any additional questions and then verbalized understanding. Patient advised to call surgeon office or pre surgery nurse liaison [phone] if any additional questions.
--- NOTE | 2024-10-08 14:50 | WPDANESEPPF ---
Anes - Initial Pre Proc Eval Procedure: Operation Date: 10/09/24 12:00 Proposed Procedures p Right Ring Finger A 1 Bartolo Release - Callie Sahu MD Date/Time: 10/08/24 14:50 Surgeon: Callie Sahu MD Pre Op Diagnosis: Trigger Finger Right Ring Patient Data Age: 63 Gender: M Height: 1.8 m Weight: 122.47 kg Allergies Allergy/AdvReac Type Severity Reaction Status Date / Time aspirin Allergy Severe VOMITING Verified 10/07/24 15:51 celecoxib Allergy Severe VOMITING Verified 10/07/24 15:51 Contrast Media Allergy Severe VOMITING Uncoded 10/07/24 15:51 Home Medications ?Medication ?Instructions ?Recorded ?Confirmed ?Type bupropion HCl 150 mg tablet,12 hr 150 mg PO BID 04/21/23 10/03/24 History sustained-release dulaglutide 0.75 mg/0.5 mL 0.75 mg subcut WEEKLY 04/21/23 10/03/24 History subcutaneous pen injector (Trulicity) empagliflozin 25 mg tablet 25 mg PO DAILY 04/21/23 10/03/24 History (Jardiance) gabapentin 600 mg tablet 600 mg PO BID 04/21/23 10/03/24 History glipizide 10 mg tablet, extended 10 mg PO BID 04/21/23 10/03/24 History release 24 hr lisinopril 10 mg tablet 10 mg PO DAILY 04/21/23 10/03/24 History multivitamin (Daily Multi-Vitamin 1 tablet PO DAILY 04/21/23 10/03/24 History tablet) pantoprazole 40 mg tablet,delayed 40 mg PO HS 04/21/23 10/03/24 History release tamsulosin 0.4 mg capsule 0.4 mg PO HS 04/21/23 10/03/24 History ezetimibe 10 mg tablet 10 mg PO DAILY 10/03/24 10/03/24 History famotidine 20 mg tablet (Acid 20 mg PO HS 10/03/24 10/03/24 History Controller) glucosamine-chondroitin 250 mg-200 1 tablet PO BID 10/03/24 10/03/24 History mg tablet (Osteo Bi-Flex) omega 5-pyk-ypa-fish oil 1,200 mg 1 cap PO DAILY 10/03/24 10/03/24 History (144 mg-216 mg) capsule (Fish Oil) rosuvastatin 20 mg tablet 20 mg PO HS 10/03/24 10/03/24 History semaglutide 0.25 mg or 0.5 mg (2 0.25 mg subcut WEEKLY 10/03/24 10/03/24 History mg/3 mL) subcutaneous pen injector (Ozempic) tramadol 50 mg tablet 50 mg PO Q6H PRN pain #12 tabs 10/09/24 Rx Patient hx anesthesia problems: none Family hx anesthesia problems: none Results Review: All pre-operative results and documents have been reviewed as part of the pre-operative evaluation. [facility] Past Medical History Medical History Lumbar stenosis Polyneuropathy Diabetes mellitus Major depressive disorder, recurrent, in partial remission Morbid (severe) obesity due to excess calories Gastro-esophageal reflux disease without esophagitis Essential (primary) hypertension Surgical History Surgical History H/O knee surgery H/O repair of rotator cuff H/O hernia repair Family History Family History Father Cancer Sibling Cancer Hypertension Sibling Diabetes mellitus Hypertension Social History Social History Smoking status: Never smoker Alcohol intake: current Alcohol use details: Social Substance use: never Living arrangements: with family Spiritual care concerns: No Anes - Eval Final PreProcedure Day of Procedure 10/08/24 14:50 Patient weight: obese Heart: regular rate and rhythm Lungs: clear to auscultation Airway: Mallampati scale class II Neurological: alert and oriented Last oral intake: >/= 8 hours ASA classification: III Emergent: no Anesthetic plan: proceed Anesthesia type and monitoring: general GIVS and standard monitoring Results Review: All pre-operative results and documents have been reviewed as part of the pre-operative evaluation. Informed Consent: The patient's anesthetic plan and its attendant risks and benefits were discussed with the patient/family/POA. Questions were solicited and answers provided to the satisfaction of the patient/family/POA.
--- OUTSIDE RECORDS SUMMARY | 2024-10-09 00:57 | XMS_ITS | Continuity of Care Document ---
Author Organization [facility] Address [address] [facility] [address] [place] [address] Phone Care Team Providers Care Alliance Consultant Name Role Phone Ren Han MD [...] OFFICE/OUTPA TIENT VISIT EST [facility], [address], [place], [address], [place] tel:[phone] [facility] Left knee pain, unspecified chronicityBody mass index [BMI] 39.0-39.9, adultPrimary osteoarthritis of left knee 2 Emely Mcclure. [address], [place], [place], [address]. tel:[phone] Referring Provider: Laura Dumont, [address], [place], [address]. tel:[phone] [facility], [address] [facility] [address], [place], [address], [place] tel:[phone] [facility] No Information 0 Lali Lynn. [address], [place], [place], [address]. tel:[phone] OFFICE/OUTPA TIENT VISIT EST [facility], [address], [place], [address], [place] tel:[phone] [facility] Unspecified fracture of lower end of left ulna, subsequent encounter for closed fracture with routine healingPain in left handSprain of left wrist, subsequent encounter 0 Toño Millard. [address], [place], [place], [address]. tel:[phone] [facility], [address], [place], [address], [place] tel:[phone] [facility] Pain in left hand 0 No Information Referring Provider: Shane Escalera, [address], [place], [address] . tel:[phone] OFFICE/OUTPA TIENT VISIT EST [facility], [address] [facility] [address], [place], [address], [place] tel:[phone] [facility] Pain in left hand 0 Toño Millard. [address], [place], [place], [address]. tel:[phone] OFFICE/OUTPA TIENT VISIT NEW [facility], [address] [facility], [place], [address], [place] tel:[phone] [facility] Body mass index (BMI) 40.0-44.9, adultClosed fracture of distal end of left ulna, unspecified fracture morphology, initial encounterSprai n of left wrist, initial encounter 0 Toño Millard. [address], [place], [place], [address]. tel:[phone] Referring Provider: [address], [place], [address]. 

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
--- OUTSIDE RECORDS SUMMARY | 2024-10-09 00:57 | XMS_ITS | CONTINUITY OF CARE DOCUMENT ---
Author Name dennis collins Address Unknown Organization [facility] Address [address] [address] [facility] [address] [place] [address] Phone [phone] Care Team Providers Care Clip On Sunglasses Assembler Name Role Phone Ramesh Telles MD Unavailable [phone] [address] SUNSHINE MD Unavailable INSURANCE PROVIDERS Payer name Policy type / Coverage type [place] [employer] party ID [facility] [id number]
--- NOTE | 2024-10-09 07:07 | WPDHPUPDATE1 ---
History and Physical Update Update Date/Time: 10/09/24 07:07 Patient seen and examined in pre-operative holding area. No interval change in medical history or symptoms. Patient recalls previous discussion of benefits and alternatives to procedure. Continues to desire to proceed with right ring trigger finger release. Reviewed procedure, post-op expectations and risks including but not limited to bleeding, infection, injury to tendon/nerve/vessel, decreased hand function, stiffness, RSD, no change or worsening of symptoms. I discussed the possible use of assistants and their participation in the case. Patient stated understanding and signed the consent form wishing to proceed.
--- NOTE | 2024-10-09 07:08 | P.OP_ITS ---
Procedure Note - Detailed Date of Procedure 10/10/24 Pre-op Diagnosis Trigger Finger Right Ring Post-op Diagnosis Same Procedure Performed right ring finger a1 renata release Surgeon Callie Sahu MD Engine Service Repairer shankar pacheco pa-c Anesthesia MAC Description of Procedure INFORMED CONSENT: The patient was seen and examined and marked in the pre-op area.? The patient signed the consent form. PROCEDURE IN DETAIL:The patient taken back to OR on the stretcher in supine position. Time out performed with anesthesia, surgeon and staff agreeing on patient's name site and surgery to be performed SCDs were placed on the lower extremities and inflated. A tourniquet was placed on {right} upper extremity and antibiotics given IV After anesthesia administered sedation I injected {4}cc 1%lido and 0.5% marcaine plain at the operative site The?{right upper extremity}?was prepped and draped in sterile fashion the??{right upper extremity} was? exsanguinated with Esmarch bandage and tourniquet inflated to 250mmHg Next I took my attention to the right ring finger where I proceeded with making a longitudinal incision over the A1 renata through skin and dermis with a 15 blade scalpel. Littler scissors were used to spread down to the A1 renata. The A1 renata was identified and initially incised with a 15 blade scalpel. Littler scissors were used to spread above it and below it proximally and distally completed the transection entirely. Ragnell retractor was used withdrawal the FDS and FDP tendons for inspection. The tendons were free of masses and synovitis and gliding smoothly in the sheath without triggering or crepitus. I irrigated with normal saline and closed with 4-0 chromic. A dressing of xeroform, 4x4, jasmin, and amy bandage was appliedafter the tourniquet was let down noting the hand was warm and well perfused. The patient was then awaken from anesthesia and transferred to the recovery room in stable condition.? Complications - none EBL- 0cc Disposition - home in stable conditions shankar pacheco pa-c was essential for positioning, retraction, closure and dressing placement AM Billing Surgery - Charge Forward: Surgery Billing ([id number] for shankar)
[2024-10-09 10:55] LABS: Glucose Point of Care 134 mg/dl (65-105)
[2024-10-09 10:59] VITALS: BP 126/78; PULSE 75; RESP 14; TEMP 36; O2SAT 97
[2024-10-09] MEDS: LACTATED RINGERS 1,000 ML 30 ML IV CONT (11:03)
[2024-10-09] MEDS: LIDO 1%/EPINEPHRINE 1:100,000 50 ML VIAL 20 ML INFILTRATE (11:14)
[2024-10-09] MEDS: ceFAZolin 3 GM/D5W 100 ML 100 ML IVPB (12:26)
[2024-10-09 12:42] VITALS: BP 111/69; PULSE 64; RESP 14; O2SAT 94
[2024-10-09 13:10] VITALS: BP 105/64; PULSE 62; RESP 20
[2024-10-09 13:40] VITALS: BP 116/72; PULSE 62; RESP 20
[2024-10-09 14:00] VITALS: BP 116/70; PULSE 62; RESP 20
== END 2024-10-09 14:07 | disposition home or self-care (01) ==
PROVIDERS: Visit Provider Plastic Surgery
PROC: (CPT 26055; principal; 2024-10-09 12:00)
DX: M65.341 Trigger finger, right ring finger (principal); E11.9 Type 2 diabetes mellitus without complications; I10 Essential (primary) hypertension; K21.9 Gastro-esophageal reflux disease without esophagitis; F33.41 Major depressive disorder, recurrent, in partial remission; M48.061 Spinal stenosis, lumbar region without neurogenic claudication; G62.9 Polyneuropathy, unspecified; E66.9 Obesity, unspecified; Z68.36 Body mass index [BMI] 36.0-36.9, adult; Z79.85 Long-term (current) use of injectable non-insulin antidiabetic drugs; Z79.84 Long term (current) use of oral hypoglycemic drugs; Z79.82 Long term (current) use of aspirin; Z79.891 Long term (current) use of opiate analgesic; Z98.890 Other specified postprocedural states; Z80.9 Family history of malignant neoplasm, unspecified
CPT/HCPCS: 26055; 82948; J0690; J2004; J2250; J2704; J3010; J7120